=== PATIENT | female | born 1970 | race Caucasian/White ===

== ENCOUNTER → 2021-06-08 12:39 | Outpatient (REF) | payer BC, SELFPAY | LOC: LABSPEC 12:39 | PROVIDERS: PCP Family Medicine; Referring Provider Family Medicine; Visit Provider Family Medicine | DX: Z03.818 Encounter for observation for suspected exposure to other biological agents ruled out (principal) | CPT/HCPCS: 87635; U0005; U0003 ==

== ENCOUNTER 2021-06-21 09:10 | Emergency (ER) | payer BC, SELFPAY ==
[2021-06-21 09:12] VITALS: BP 138/93; PULSE 81; RESP 16; TEMP 36.3; O2SAT 96; BMI 32.2
[2021-06-21 09:13] VITALS: BP 138/93; PULSE 81; RESP 16; TEMP 36.3; O2SAT 96
--- NOTE | 2021-06-21 09:31 | CT_ITS ---
STUDY: CT ABDOMEN AND PELVIS WITHOUT CONTRAST REASON FOR EXAM: Female, 51 years old. Kidney Stone RADIATION DOSAGE (If Supplied By Facility): CTDIvol = ( 11.35 ) mGy, DLP = ( 535.97 ) mGycm TECHNIQUE: Transaxial images were obtained from the dome of the diaphragm to the symphysis pubis without oral contrast, and without intravenous contrast. Sagittal and coronal images were reconstructed. Individualized dose optimization techniques were used for this CT. COMPARISON: None. FINDINGS: The visualized lung bases are unremarkable. The visualized portions of the heart are within normal limits. Normal liver. Normal gallbladder and extrahepatic biliary system. Normal spleen. There is diffuse atrophy of the pancreas. Normal bilateral adrenal glands. 2 mm nonobstructive progress in the lower pole calyx of the right kidney. Mild degree of left hydronephrosis with left perinephric stranding. Mild degree of left hydroureter down to the ureterovesical junction. A 2.5 mm calculus is seen at the base of the bladder on the left side suggestive of recently passed left ureteral calculus. 2 mm calculus in the midpole calyx of the left kidney. Normal visualized stomach. Normal small intestine. There are scattered colonic diverticula consistent with diverticulosis. The appendix is visualized and appears normal. Normal abdominal aorta. Normal inferior vena cava. Normal retroperitoneum. Normal urinary bladder. There is a left-sided inguinal hernia containing adipose tissue. There are mild degenerative changes of the visualized lumbar spine. CT/Abdomen/Pelvis without Cont IMPRESSION: Mild degree of the left hydronephrosis and left hydroureter due to a 2.5 mm calculus which is at the base of the bladder on the left side suggestive of recently passed ureteral stone. Nonobstructive bilateral intrarenal calculi. Electronically Signed: Alan Navas MD at 10:37 EST , Service support ,
--- NOTE | 2021-06-21 09:44 | EDS_ITS ---
HPI History of Present Illness Chief Complaint: Flank Pain Informant: patient Onset/Context/Timing Onset: Days Context: Gradual Onset Timing: Waxes and wanes Current Severity: Moderate Maximum Severity: Moderate Narrative Narrative: Patient presents with left flank pain. She states she initially had pain 2 days ago but it resolved yesterday. This morning on her way to work pain in it again was more severe. She has had some urgency and burning with urination. She has had 1 prior kidney stone and states this feels similar. She did take ibuprofen and Pyridium this morning. [facility] Medical History Asthma Kidney stone Home Medications albuterol sulfate [Ventolin Hfa (SP)] 1 - 2 puff INHALATION Q4H PRN PRN 08/06/15 [History Last Taken Unknown] budesonide-formoterol [Symbicort 160/4.5 Mcg Inhaler (SP)] 2 puff INHALATION BID 08/06/15 [History Last Taken Unknown] escitalopram oxalate 10 mg PO DAILY 08/06/15 [History Last Taken Unknown] ketorolac 10 mg PO Q6H PRN 3 Days #10 tab 06/21/21 [Rx Last Taken Unknown] nitrofurantoin monohyd/m-cryst [Macrobid] 100 mg PO BID #10 cap 06/21/21 [Rx Last Taken Unknown] Allergy/AdvReac Type Severity Reaction Status Date / Time Sulfa (Sulfonamide Allergy Hives Verified 06/21/21 09:13 Antibiotics) aspirin AdvReac Other Verified 06/21/21 09:13 Social History Smoking Status: Never smoker ROS ROS ED Constitutional Constitutional ED: Denies chills or fever(s) Eyes Eyes: Denies change in vision ENT ENT ED: Denies sore throat Cardiovascular Cardiovascular: Denies chest pain Respiratory/Chest Respiratory/Chest: Denies cough or dyspnea Gastrointestinal Gastrointestinal: Reports abdominal pain and nausea; Denies diarrhea or vomiting Genitourinary Genitourinary ED: Reports dysuria Musculoskeletal Musculoskeletal: Reports back pain Integumentary Denies rash Neurologic Neurologic: Denies headache(s) or weakness Psychiatric Psychiatric: Denies anxiety or depression Allergic/Immunologic Allergic/Immunologic ED: Denies urticaria EXAM Physical Exam Const Vital Signs: 06/21/21 09:12 06/21/21 09:13 Temperature 97.3 F L 97.3 F L Temperature Source Temporal Temporal Pulse Rate 81 81 Respiratory Rate 16 16 Blood Pressure 138/93 H 138/93 H Blood Pressure Mean 108 108 Pulse Ox 96 96 Oxygen Delivery Method Room Air Room Air Positive well nourished and well developed General Appearance ED: well developed HEENT Reports normocephalic and head/scalp atraumatic Eyes PERRL and EOMs intact bilaterally Neck supple Chest Wall inspection of chest normal and palpation of chest normal Resp normal respiratory effort and clear to auscultation bilaterally Cardio regular rate and regular rhythm GI Auscultation: hypoactive bowel sounds Palpation: soft and tender other (Mild lower abdominal tenderness to palpation.) Back/Spine no CVA tenderness Extremity normal to inspection Neuro oriented x3 and no sensory deficits noted Sensorium / Orientation: alert Motor Exam: strength 5/5 throughout Psych mental status grossly normal Skin no rashes or lesions noted MDM MDM MDM Narrative Medical decision making narrative: Patient was given morphine, Toradol, Zofran, IV fluids. Lab work, urinalysis, CT flank obtained. Lab Data Attestation: I reviewed the patient's lab results. Labs: Laboratory Results - last 24 hr 06/21/21 06/21/21 06/21/21 09:55 09:55 09:55 WBC 8.2 RBC 4.21 Hgb 13.2 Hct 39.1 MCV 92.9 MCH 31.4 MCHC 33.8 RDW Std Deviation 41.6 RDW Coeff of [place] 12.0 Plt Count 247 MPV 9.7 Immature Gran % (Auto) 0.200 Neut % (Auto) 75.0 H Lymph % (Auto) 16.2 L [place] % (Auto) 6.7 Eos % (Auto) 1.5 Baso % (Auto) 0.4 Absolute Neuts (auto) 6.2 Absolute Lymphs (auto) 1.33 Nucleated RBC % 0 Sodium 142 Potassium 4.2 Chloride 107 Carbon Dioxide 29.0 Anion Gap 6 BUN 17 Creatinine 1.03 H Estim Creat Clear Calc 51.11 Est GFR (MDRD) Af Amer 73 Est GFR (MDRD) Non-Af 60 BUN/Creatinine Ratio 16.5 Glucose 97 Calcium 9.2 Urine Color Red Urine Clarity Sl. Cloudy Urine pH 5.0 Ur Specific [place] 1.025 Urine Protein 30 H Urine Glucose (UA) Normal Urine Ketones Negative Urine Occult Blood 50 H Urine Nitrite Positive H Urine Bilirubin 3 H Urine Urobilinogen 4 H Ur Leukocyte Esterase Negative Urine RBC 50-100 SEEN Urine WBC 0-5 SEEN Ur Squamous Epith Cells 5-10 SEEN Calcium Oxalate Crystal RARE Urine Bacteria RARE Urine Mucus 0 SEEN Radiography Diagnostic Testing: Clinical Impression(s) from Imaging Studies Abdomen/Pelvis CT 06/21/21 09:31 IMPRESSION: Mild degree of the left hydronephrosis and left hydroureter due to a 2.5 mm calculus which is at the base of the bladder on the left side suggestive of recently passed ureteral stone. Nonobstructive bilateral intrarenal calculi. Electronically Signed: Alan Navas MD at 10:37 EST , Service support , Treatment and Re-Evaluation Comments:: Lab work unremarkable with normal renal function. Urinalysis does reveal positive nitrites with 0-5 white cells and rare bacteria. Urine culture will be sent and she will be treated with [address] scan confirms 2.5 mm stone in the base of the bladder suggestive of a recently passed ureteral stone. Test results discussed with patient and family at bedside. She will be treated with Toradol and Bactrim at home. Return instructions provided. Discharge Plan Triage Chief Complaint: Flank Pain ED Provider: Lashell Castañeda Dx/Rx/DC Orders Clinical Impression: Kidney stone Instructions: ED Kidney Stone w/ Colic Prescriptions: New nitrofurantoin monohyd/m-cryst [Macrobid] 100 mg capsule 100 mg PO BID Qty: 10 RF: 0 ketorolac 10 mg tablet 10 mg PO Q6H PRN (Reason: pain) 3 Days Qty: 10 RF: 0 No Action albuterol sulfate [Ventolin HFA] 1 INHALER inhaler 1 - 2 puff inhalation Q4H PRN PRN (Reason: Wheezing) RF: 0 escitalopram oxalate 10 MG tablet 10 mg PO DAILY RF: 0 budesonide-formoterol [Symbicort] 1 INHALER inhaler 2 puff inhalation BID RF: 0 Primary Care Provider: Yony Moyer Referrals: Yony Moyer MD [Primary Care Provider] - Jl Dodd MD [STAFF PHYSICIAN] - As Needed Disposition Disposition: Home, Self Care
[2021-06-21 10:05] LABS: Mucous, Urine 0 SEEN /hpf (<or=2+)
[2021-06-21] MEDS: 0.9% Normal Saline 1,000 ML 250 ML IV (10:06)
[2021-06-21] MEDS: Ketorolac 15 MG/ML Vial IV (10:06)
[2021-06-21] MEDS: Morphine 4 MG/ML Syringe IV (10:06)
[2021-06-21] MEDS: Ondansetron 4 MG/2 ML Vial IV (10:06)
[2021-06-21 10:07] LABS: Color, Urine Red (Yellow); Glucose, Dipstick Normal (Normal); Ketone-Dipstick Negative (Negative); Leukocyte Esterase-Dipstick Negative /ul (Negative); Nitrite-Dipstick Positive (Negative); Occult Blood-Urine 50 /ul (Negative); Protein-Dipstick 30 mg/dl (Negative); Specific Gravity, Urine 1.025 (1.002-1.030); Urine Clarity Sl. Cloudy (Clear); Urine Urobilinogen 4 mg/dl (Normal)
[2021-06-21 10:09] LABS: Absolute Lymphocyte Count 1.33 X10^3/uL (0.83-4.51); Absolute Neutrophil Count 6.2 X10^3/uL (2.0-7.7); Basophil# 0.03 X10^3/uL; Basophil% 0.4 % (0-1); Eosinophil# 0.12 X10^3/uL; Eosinophils% 1.5 % (0-5); Hematocrit 39.1 % (37-47); Hemoglobin 13.2 g/dL (12.0-15.0); Lymphocyte # 1.33 X10^3/ul (0.83-4.51); Lymphocyte % 16.2 % (19-41); Mean Corp Hgb Conc 33.8 g/dL (32-36); Mean Corpuscular Hgb 31.4 pg (27.0-32.0); Mean Corpuscular Volume 92.9 fL (81-99); Mean Platelet Vol. 9.7 fl (6.2-12.0); Monocyte# 0.55 X10^3/uL; Monocyte% 6.7 % (0-10); NRBC Flagged by Analyzer 0 % (0-5); Neutrophil # 6.16 X10^3/uL (2.7-7.7); Platelet Count 247 K/mm3 (150-450); RBC Distribution Width SD 41.6 fl (35.1-43.9); Red Blood Count 4.21 M/mm3 (4.2-5.4); White Blood Count 8.2 K/mm3 (4.4-11.0)
[2021-06-21 10:16] LABS: Anion Gap 6 (5-15); BUN 17 mg/dL (7-18); BUN/Creat Ratio 16.5 RATIO (10-20); Calcium,Total 9.2 mg/dL (8.5-10.1); Chloride 107 mmol/L (98-107); Creatinine, Serum 1.03 mg/dL (0.55-1.02); EST Glomerular Filtration Rate 60 mL/min (>60); Est Glom Filt Rate - Afr Amer 73 mL/min (>60); Estimated Creatinine Clearance 51.11 ml/min; Glucose 97 mg/dL (74-106); Potassium 4.2 mmol/L (3.5-5.1); Sodium Level 142 mmol/L (136-145)
[2021-06-21 10:20] LABS: Urine Bilirubin Dipstick 3 mg/dL (Negative)
[2021-06-21 10:22] LABS: Bacteria RARE /hpf (None Seen); Calcium Oxalate Crystals Ur RARE /hpf (<or=2+); Red Blood Cells-Urine 50-100 SEEN /hpf (0-5); Squamous Epithelial Cells - UA 5-10 SEEN /hpf (5-10); White Blood Cells 0-5 SEEN /hpf (0-5)
== END 2021-06-21 11:40 | disposition home or self-care (01) ==
PROVIDERS: Emergency Provider Emergency Medicine; PCP Family Medicine
DX: N20.0 Calculus of kidney (principal); Z87.442 Personal history of urinary calculi
CPT/HCPCS: 74176; 80048; 81001; 85025; 87086; 87088; 96374; 96375; 99283; J7030; A4216; J2405

== ENCOUNTER 2021-08-24 09:25 | Outpatient (CLI) | payer BC, SELFPAY ==
[2021-08-24 10:56] LABS: Cholesterol 162 mg/dL (200); Glucose 86 mg/dL (74-106); High Density Lipoprotein 56 mg/dL; Triglycerides 82 mg/dL; Very Low Density Lipoprotein 16 mg/dL (5-40)
== END 2021-08-24 23:59 | disposition home or self-care (01) ==
LOC: MTLAB 09:26
PROVIDERS: PCP Family Medicine; Referring Provider Family Medicine; Visit Provider Family Medicine
DX: Z00.00 Encounter for general adult medical examination without abnormal findings (principal)
CPT/HCPCS: 36415; 80061; 82947

== ENCOUNTER → 2024-06-25 | Outpatient (CLI) | payer BC, SELFPAY ==
--- NOTE | 2024-06-25 15:01 | RAD_ITS ---
INDICATION: ARTHRITIS EXAMINATION/TECHNIQUE: X-RAY - LEFT XR Knee Complete 4 Views or More 4 VIEWS COMPARISON: No relevant prior comparison study available FINDINGS: BONES: No fracture demonstrated. Mild joint space narrowing with subchondral sclerosis and osteophytes at all 3 compartments. Most pronounced at the patellofemoral and medial compartment . JOINTS: No dislocation. SOFT TISSUES: Unremarkable. RAD/Knee 4 or More Views IMPRESSION: Mild degenerative changes. No evidence of fracture. Electronically Signed: Keyonna Pelletier MD at 8:08 EST ,
--- NOTE | 2024-06-25 15:01 | RAD_ITS ---
INDICATION: ARTHRITIS EXAMINATION/TECHNIQUE: X-RAY - RIGHT XR Knee Complete 4 Views or More 4 VIEWS COMPARISON: No relevant prior comparison study available FINDINGS: BONES: No fracture demonstrated. Moderate joint space narrowing with subchondral sclerosis and osteophytes at all 3 compartments, most pronounced at the medial compartment. Spurring of the tibial spines. JOINTS: No dislocation. SOFT TISSUES: Unremarkable. RAD/Knee 4 or More Views IMPRESSION: Moderate tricompartmental degenerative changes. No evidence of fracture. Electronically Signed: Keyonna Pelletier MD at 8:07 EST ,
== END | disposition home or self-care (01) ==
LOC: MTRAD 14:59
PROVIDERS: PCP Nurse Practitioner Family; Referring Provider Nurse Practitioner Family; Visit Provider Nurse Practitioner Family
DX: M25.561 Pain in right knee (principal); M25.562 Pain in left knee
CPT/HCPCS: 73564

== ENCOUNTER → 2024-07-13 | Outpatient (CLI) | payer BC, SELFPAY ==
[2024-07-17 13:07] LABS: Age Gdln ACOG Testing 30-65 (.); HPV APTIMA, High Risk Negative (Negative)
[2024-07-19 08:10] LABS: HPV Reflexed? YES, CHARGE PATIENT
== END | disposition home or self-care (01) ==
LOC: LABSPEC 16:01
PROVIDERS: PCP Nurse Practitioner Family; Visit Provider Nurse Practitioner Family
DX: Z12.4 Encounter for screening for malignant neoplasm of cervix (principal)
CPT/HCPCS: 87624; 88175; G0145

== ENCOUNTER → 2024-08-19 | Outpatient (CLI) | payer BC, SELFPAY ==
[2024-08-19 17:53] LABS: Absolute Lymphocyte Count 2.38 X10^3/uL (0.83-4.51); Absolute Neutrophil Count 3.9 X10^3/uL (2.0-7.7); Basophil# 0.03 X10^3/uL; Basophil% 0.4 % (0-1); Eosinophil# 0.09 X10^3/uL; Eosinophils% 1.3 % (0-5); Hematocrit 42.5 % (37-47); Hemoglobin 14.3 g/dL (12.0-15.0); Lymphocyte # 2.38 X10^3/ul (0.83-4.51); Lymphocyte % 35.1 % (19-41); Mean Corp Hgb Conc 33.6 g/dL (32-36); Mean Corpuscular Hgb 32.1 pg (27.0-32.0); Mean Corpuscular Volume 95.3 fL (81-99); Mean Platelet Vol. 9.6 fl (6.2-12.0); Monocyte# 0.34 X10^3/uL; NRBC Flagged by Analyzer 0 % (0-5); Neutrophil # 3.92 X10^3/uL (2.7-7.7); Neutrophil % 57.9 % (47-70); Platelet Count 331 K/mm3 (150-450); RBC Distribution Width CV 12.4 % (11.6-14.6); RBC Distribution Width SD 43.6 fl (35.1-43.9); Red Blood Count 4.46 M/mm3 (4.2-5.4); White Blood Count 6.8 K/mm3 (4.4-11.0)
[2024-08-19 18:07] LABS: AST(SGOT) 19 U/L (15-37); Alanine Aminotransfer ALT/SGPT 47 U/L (13-56); Albumin, Serum 3.6 g/dL (3.2-5.0); Alkaline Phosphatase 80 U/L (45-117); Anion Gap 4 (5-15); BUN 17 mg/dL (7-18); BUN/Creat Ratio 16.5 RATIO (10-20); Calcium,Total 9.3 mg/dL (8.5-10.1); Chloride 105 mmol/L (98-107); Creatinine, Serum 1.03 mg/dL (0.55-1.02); EST Glomerular Filtration Rate 59 mL/min (>60); Est Glom Filt Rate - Afr Amer 72 mL/min (>60); Globulin 3.7 g/dL (2.2-4.2); Glucose 135 mg/dL (74-106); Protein, Total 7.3 g/dL (6.4-8.2); Sodium Level 138 mmol/L (136-145)
== END | disposition home or self-care (01) ==
PROVIDERS: PCP Nurse Practitioner Family; Referring Provider Nurse Practitioner Family; Visit Provider Nurse Practitioner Family
DX: Z00.01 Encounter for general adult medical examination with abnormal findings (principal)
CPT/HCPCS: 36415; 80053; 85025

== ENCOUNTER → 2025-02-14 | Outpatient (CLI) | payer BC, SELFPAY ==
--- NOTE | 2025-02-14 06:55 | EKG12_ITS ---
Test Reason : PREOP Blood Pressure : */* mmHG Vent. Rate : 82 BPM Atrial Rate : 82 BPM P-R Int : 146 ms QRS Dur : 90 ms QT Int : 388 ms P-R-T Axes : 53 33 49 degrees QTcB Int : 453 ms Normal sinus rhythm Normal ECG Confirmed by VIANCA VENEGAS, KEESHA ([id number]), associate entertainment editor DAHLIA CHAVEZ ([id number]) on 02/15/2025 6:04:31 AM Referred By: Kal Thomas Confirmed By: KEESHA COLEY MD
--- NOTE | 2025-02-14 06:58 | CT_ITS ---
PROCEDURE: EXTREMITY LOWER WITHOUT CONTRA 02/14/2025 REASON FOR EXAM: PAIN IN RT KNEE TECHNIQUE: EXTREMITY LOWER WITHOUT CONTRA Coronal and Sagittal reconstruction series were provided. CONTRAST: None One or more dose reduction techniques were used (e.g., Automated exposure control, adjustment of the mA and/or kV according to patient size, use of iterative reconstruction technique). RADIATION DOSE SUMMARY: DLP: 1179 mGycm COMPARISON: None FINDINGS: There is severe medial joint space narrowing. There is osteophyte formation at all articular surfaces. There is no acute fracture or dislocation. There is a small joint effusion. There is no visible soft tissue mass or cyst. There is no visible atherosclerosis. CT/Extremity Lower without Contra IMPRESSION: There is severe medial joint space narrowing. There is osteophyte formation at all articular surfaces. Reading Location: [facility]
--- OUTSIDE RECORDS SUMMARY | 2025-02-14 07:08 | XMS RPT_ITS | CCD ---
Author Organization [facility] Inform ion Partnership [employer]MENT SUPERVISOR [facility] Care Team Providers Care [employer] Name Role Phone Unavailable Primary Care Provider Unavailabl e Kal Thomas Referring Unavailable Kal Thomas Attending Unavailable Jesus, Radha Primary Care Unavailable Jesus, Radha Attending Unavailable Jesus, Radha Primary Care Unavailable Jesus, Radha Referring Unavailable Jesus, Radha Attending Unavailable Jesus, Radha Primary Care Unavailable Jesus, Radha Referring Unavailable Jesus, Radha Attending Unavailable Jesus, Radha Primary Care Unavailable Allergies Allergy Classification Reported Allergen(s) Allergy Type Date of Onset Reaction(s) Facility (1 source) Aspirin Drug Allergy 3 Other: See Comments [facility] (1 source) Sulfonamides (Antibiotic) Drug Allergy [address] [facility] (1 source) Aspirin Drug Allergy 1 [facility] (1 source) Sulfonamides (Antibiotic) Drug allergy (disorder) 1 [facility] Medications Current Medications Medication Drug Class(es) Dates Sig (Normalized) Sig (Original) [id number] actuat albuterol 0.09 mg/actuat metered dose inhaler (1 source) beta2-Adrenergic Agonist take 2 puff(s) by inhalation every six hours as needed albuterol HFA (PROVENTIL HFA, VENTOLIN HFA) 90 mcg/actuation inhaler Inhale 2 Puffs as instructed every 6 hours as needed. 0 Active meclizine hydrochloride 25 mg oral tablet (1 source) Antiemetic Start: 12-17-2023 End: 12-24-2023 take 1 tablet by mouth every six hours as needed meclizine (ANTIVERT) 25 mg tab Take 1 tablet by mouth every 6 hours as needed (dizziness) for up to 7 days. 12 tablet 0 12/17/2023 12/24/2023 Active Problems Active Problems Problem Classification Problem Date Documented Da te Episodic/Chronic Conditions associated with dizziness or vertigo (1 source) Vertigo; Translations: [Dizziness and giddiness] 12-17-2023 Episodic Other ear and sense organ disorders (1 source) Bilateral subjective tinnitus of ears; Translations: [Tinnitus, bilateral] 12-17-2023 Episodic Past or Other Problems Problem Classification Problem Date Documented Da te Episodic/Chronic Other non-traumatic joint disorders (1 source) Pain in right knee; Translations: [Pain in right knee] Onset: 07-19-2024 Episodic Other screening for suspected conditions (not mental disorders or infectious disease) (1 source) Encounter for screening for malignant neoplasm of cervix; Translations: [Encounter for screening for malignant neoplasm of cervix] Onset: 08-02-2024 Episodic Results Test Name Value Interpretation Reference Range Facil ity CBC W/Diff, Automatedon 08-01 Absolute Lymph 2.38 X10 3/uL Normal 0.83-4.51 [facility] Comment on above: Performed By: #### L 500.4050, L100.0100 #### [facility] [address] [place], [address] Absolute Neut 3.9 X10 3/uL Normal 2.0-7.7 [facility] Comment on above: Performed By: #### L 500.4050, L100.0100 #### [facility] [address] [place], [address] Basophils/100 WBC (Bld) 0.4 % Normal 0-1 [facility] Comment on above: Performed By: #### L 500.4050, L100.0100 #### [facility] [address] [place], [address] Eosinophils/100 WBC (Bld) 1.3 % Normal 0-5 [facility] Comment on above: Performed By: #### L 500.4050, L100.0100 #### [facility] [address] [place], [address] Erythrocyte distribution width (RBC) [Ratio] 12.4 % Normal 11.6-14.6 [facility] Comment on above: Performed By: #### L 500.4050, L100.0100 #### [facility] [address] [place], [address] Hematocrit (Bld) [Volume fraction] 42.5 % Normal 37-47 [facility] Comment on above: Performed By: #### L 500.4050, L100.0100 #### [facility] [address] [place], [address] Hemoglobin (Bld) [Mass/Vol] 14.3 g/dL Normal 12.0-15.0 [facility] Comment on above: Performed By: #### L 500.4050, L100.0100 #### [facility] [address] [place], [address] IG% 0.300 Normal 0.0-0.9 [facility] Comment on above: Result Comment: IG% - Immature Granulocytes (promyelocytes, myelocytes and metamyelocytes) > 1% indicates that a LEFT SHIFT is Present. Performed By: #### L 500.4050, L100.0100 #### [facility] [address] [place], [address] Lymphocytes/100 WBC (Bld) 35.1 % Normal 19-41 [facility] Comment on above: Performed By: #### L 500.4050, L100.0100 #### [facility] [address] [place], [address] MCH (RBC) [Entitic mass] 32.1 pg High 27.0-32.0 [facility] Comment on above: Performed By: #### L 500.4050, L100.0100 #### [facility] [address] [place], [address] MCHC (RBC) [Mass/Vol] 33.6 g/dL Normal 32-36 [facility] Comment on above: Performed By: #### L 500.4050, L100.0100 #### [facility] [address] [place], [address] MCV (RBC) [Entitic vol] 95.3 fL Normal 81-99 [facility] Comment on above: Performed By: #### L 500.4050, L100.0100 #### [facility] [address] [place], [address] Monocytes/100 WBC (Bld) 5.0 % Normal 0-10 [facility] Comment on above: Performed By: #### L 500.4050, L100.0100 #### [facility] [address] [place], [address] Neutrophils/100 WBC (Bld) 57.9 % Normal 47-70 [facility] Comment on above: Performed By: #### L 500.4050, L100.0100 #### [facility] [address] [place], [address] Nucleated RBC (Bld) [#/Vol] 0 10*3/uL Normal 0-5 [facility] Comment on above: Performed By: #### L 500.4050, L100.0100 #### [facility] [address] [place], [address] Platelet mean volume (Bld) [Entitic vol] 9.6 fL Normal 6.2-12.0 [facility] Comment on above: Performed By: #### L 500.4050, L100.0100 #### [facility] [address] [place], [address] Platelets (Bld) [#/Vol] 331 10*3/uL Normal 150-450 [facility] Comment on above: Performed By: #### L 500.4050, L100.0100 #### [facility] [address] [place], [address] RBC (Bld) [#/Vol] 4.46 10*6/uL Normal 4.2-5.4 [facility] Comment on above: Performed By: #### L 500.4050, L100.0100 #### [facility] [address] [place], [address] RDW SD 43.6 fl Normal 35.1-43.9 [facility] Comment on above: Performed By: #### L 500.4050, L100.0100 #### [facility] [address] [place], [address] WBC (Bld) [#/Vol] 6.8 10*3/uL Normal 4.4-11.0 [facility] Comment on above: Performed By: #### L 500.4050, L100.0100 #### [facility] [address] [place], [address] Comprehensive Metabolic Prof [facility] 08-19-2024 Albumin [Mass/Vol] 3.6 g/dL Normal 3.2-5.0 [facility] Comment on above: Performed By: #### L 500.4050, L100.0100 #### [facility] [address] [place], [address] Albumin/Globulin [Mass ratio] 1.0 {ratio} Normal 0.9-2.4 [facility] Comment on above: Performed By: #### L 500.4050, L100.0100 #### [facility] [address] [place], [address] ALK P 80 U/L Normal 45-117 [facility] Comment on above: Performed By: #### L 500.4050, L100.0100 #### [facility] [address] [place], [address] ALT [Catalytic activity/Vol] 47 U/L Normal 13-56 [facility] Comment on above: Performed By: #### L 500.4050, L100.0100 #### [facility] [address] [place], [address] AST [Catalytic activity/Vol] 19 U/L Normal 15-37 [facility] Comment on above: Performed By: #### L 500.4050, L100.0100 #### [facility] [address] [place], [address] Bilirubin [Mass/Vol] 0.40 mg/dL Normal 0.20-1.00 [facility] Comment on above: Result Comment: For patients on eltrombopag therapy, use of Dimension Verner TBIL is not recommended. Performed By: #### L 500.4050, L100.0100 #### [facility] [address] [place], [address] BUN/CRE 16.5 RATIO Normal 10-20 [facility] Comment on above: Performed By: #### L 500.4050, L100.0100 #### [facility] [address] [place], [address] CA,Total 9.3 mg/dL Normal 8.5-10.1 [facility] Comment on above: Performed By: #### L 500.4050, L100.0100 #### [facility] [address] [place], [address] Chloride [Moles/Vol] 105 mmol/L Normal 98-107 [facility] Comment on above: Performed By: #### L 500.4050, L100.0100 #### [facility] [address] [place], [address] CO2 [Moles/Vol] 29.0 mmol/L Normal 21.0-32.0 [facility] Comment on above: Performed By: #### L 500.4050, L100.0100 #### [facility] [address] [place], [address] Creatinine [Mass/Vol] 1.03 mg/dL High 0.55-1.02 [facility] Comment on above: Result Comment: The validity of the calculated GFR GFRAA in patients over 70 years has not been determined. Clinical correlation is essential. Performed By: #### L 500.4050, L100.0100 #### [facility] [address] [place], [address] EST GFR - AA 72 mL/min Normal >60 [facility] Comment on above: Result Comment: Afri can Cypriot GFR Calc Performed By: #### L 500.4050, L100.0100 #### [facility] [address] [place], [address] GAP 4 Low 5-15 [facility] Comment on above: Performed By: #### L 500.4050, L100.0100 #### [facility] [address] [place], [address] GFR/1.73 sq M.predicted among non-blacks MDRD (S/P/Bld) [Vol rate/Area] 59 mL/min/{1.73_m2} Low >60 [facility] Comment on above: Result Comment: Non- GFR Calc Performed By: #### L 500.4050, L100.0100 #### [facility] [address] [place], [address] Globulin (S) [Mass/Vol] 3.7 g/dL Normal 2.2-4.2 [facility] Comment on above: Performed By: #### L 500.4050, L100.0100 #### [facility] [address] [place], [address] Glucose [Mass/Vol] 135 mg/dL High 74-106 [facility] Comment on above: Result Comment: Fast ing Glucose result greater than or equal to 126 mg/dL suggests DIABETES MELLITUS per A.D.A. criteria. Performed By: #### L 500.4050, L100.0100 #### [facility] [address] [place], [address] Potassium [Moles/Vol] 4.0 mmol/L Normal 3.5-5.1 [facility] Comment on above: Performed By: #### L 500.4050, L100.0100 #### [facility] [address] [place], [address] Sodium [Moles/Vol] 138 mmol/L Normal 136-145 [facility] Comment on above: Performed By: #### L 500.4050, L100.0100 #### [facility] [address] [place], [address] T PROT 7.3 g/dL Normal 6.4-8.2 [facility] Comment on above: Performed By: #### L 500.4050, L100.0100 #### [facility] [address] [place], [address] Urea nitrogen [Mass/Vol] 17 mg/dL Normal 7-18 [facility] Comment on above: Performed By: #### L 500.4050, L100.0100 #### [facility] [address] [place], [address] PAP IG w/Reflex HPV GDLNon 0 - ADEQ Comment Normal . [facility] Comment on above: Order Comment: Speci men Comment: No. of containers..01 ThinPrep Vial Result Comment: Sati sfactory for evaluation. Endocervical and/or squamous metaplastic cells (endocervical component) are present. Performed By: #### L 7400.0290 #### [facility] [address] [place], [address] Age Gdln ACOG T 30-65 Normal . [facility] Comment on above: Order Comment: Speci men Comment: No. of containers..01 ThinPrep Vial Performed By: #### L 7400.0290 #### [facility] [address] [place], [address] COMM . Normal . [facility] Comment on above: Order Comment: Speci men Comment: No. of containers..01 ThinPrep Vial Performed By: #### L 7400.0290 #### [facility] [address] [place], [address] COMMENT Comment Normal . [facility] Comment on above: Order Comment: Speci men Comment: No. of containers..01 ThinPrep Vial Result Comment: This liquid based ThinPrep(R) pap test was screened with the use of an image guided system. Performed By: #### L 7400.0290 #### [facility] [address] [place], [address] DIAG Comment Normal . [facility] Comment on above: Order Comment: Speci men Comment: No. of containers..01 ThinPrep Vial Result Comment: NEGA TIVE FOR INTRAEPITHELIAL LESION OR MALIGNANCY. Performed By: #### L 7400.0290 #### [facility] [address] [place], [address] HPV APTIMA, HR Negative Normal Negative [facility] Comment on above: Order Comment: [facility] Comment: No. of containers..01 ThinPrep Vial Result Comment: This nucleic acid amplification test detects fourteen high- risk HPV types (16,18,31,33,35,39,45,51,52,56,58,59,66,68) without differentiation. Performed By: #### L 7400.0290 #### [facility] [address] [place], [address] HPV Lucie Rfx Comment Normal . [facility] Comment on above: Order Comment: Speci men Comment: No. of containers..01 ThinPrep Vial Result Comment: Crit eria not met, HPV Genotype not performed. Performed at: [facility] [address] [id number] Internship: Marlyn Mari MD, Phone: [phone] Performed at: - [facility] [address] [place] [id number] Internship: Marlyn Mari MD, Phone: [phone] Performed By: #### L 7400.0290 #### [facility] [address] [place], [place], [id number] PAPSMR Comment Normal . [facility] Comment on above: Order Comment: Speci men Comment: No. of containers..01 ThinPrep Vial Result Comment: The Pap smear is a screening test designed to aid in the detection of premalignant and malignant conditions of the uterine cervix. It is not a diagnostic procedure and should not be used as the sole means of detecting cervical cancer. Both false-positive and false-negative reports do occur. Performed By: #### L 7400.0290 #### [facility] [address] [place], [place], [address] PERFORM Comment Normal . [facility] Comment on above: Order Comment: Speci men Comment: No. of containers..01 ThinPrep Vial Result Comment: Hector Tim, Access Lead (ASCP) Performed By: #### L 7400.0290 #### [facility] [address] [place], [place], [id number] Knee 4 or More Viewson 06-[address] [facility] Imaging Services [address] [place], [place] [address] Knee 4 or More Views MR#: [id number] Acct: [id number] Name: BRAYDEN LU Rep #: [id number] : 1970 F 54 From: Keyonna Monsalve PCP: JACKSON Salazar Status: REG CLI Study: Knee 4 or More Views Date of Exam: 06/25/24 Exam# [id number] Ordering Dr: Radha Lee [id number] INDICATION: ARTHRITIS EXAMINATION/TECHNIQUE: X-RAY - LEFT XR Knee Complete 4 Views or More 4 VIEWS COMPARISON: No relevant prior comparison study available FINDINGS: BONES: No fracture demonstrated. Mild joint space narrowing with subchondral sclerosis and osteophytes at all 3 compartments. Most pronounced at the patellofemoral and medial compartment . JOINTS: No dislocation. SOFT TISSUES: Unremarkable. RAD/Knee 4 or More Views IMPRESSION: Mild degenerative changes. No evidence of fracture. Electronically Signed: Keyonna Pelletier MD at 8:08 EST Reading Location ID and State: [address] [place] [address] Tel , Service support , CC: JACKSON Lee Medical Writer: Signed Normal [facility] Knee [address] [facility] Imaging Services [address] [place] [id number] Knee 4 or More Views MR#: [id number] Acct: [id number] Name: BRAYDEN LU Rep #: [id number] : 1970 F 54 From: Keyonna Monsalve PCP: JACKSON Salazar Status: REG CLI Study: Knee 4 or More Views Date of Exam: 06/25/24 Exam# [id number] Ordering Dr: Radha Lee [id number] INDICATION: ARTHRITIS EXAMINATION/TECHNIQUE: X-RAY - RIGHT XR Knee Complete 4 Views or More 4 VIEWS COMPARISON: No relevant prior comparison study available FINDINGS: BONES: No fracture demonstrated. Moderate joint space narrowing with subchondral sclerosis and osteophytes at all 3 compartments, most pronounced at the medial compartment. Spurring of the tibial spines. JOINTS: No dislocation. SOFT TISSUES: Unremarkable. RAD/Knee 4 or More Views IMPRESSION: Moderate tricompartmental degenerative changes. No evidence of fracture. Electronically Signed: Keyonna Pelletier MD at 8:07 EST , CC: JACKSON Lee Medical Writer: Signed [facility] 12-17-2023 [facility] BRAYDEN LU ([id number]) 1970 F Date Time Provider Department 12/17/23 11:45 AM CRESENCIO SERNA [facility] During your visit today, we recorded the following information about you: Temperature Pulse Respiration Blood pressure 97.5 degrees 75/minute 21/minute 124/80 Weight 82.6 kg Cresencio Serna MD 12/17/2023 12:34 PM Signed Patient presents with: Ear Problem: Bilateral ear issues, dizziness, nausea x 1 day HPI: Feeling ear issues and dizziness since yesterday. She initially had a pop in 1 ear and heard noise in the other. Now both ears have popped. She feels woozy like she is moving when standing still (no light-headedness). Symptoms are triggered with head movement. Positive symptoms: dizziness, nausea, tinnitus, chronic nasal congestion Negative symptoms: Cough, Shortness of breath, Chest tightness, Chest pain, Sore throat, Sinus pressure, Rhinorrhea, Fever, Chills, Malaise, Headache, Vomiting, Diarrhea, numbness, weakness, head injury, vision change, OTC: none She has a past history of migraine headaches but have improved over time. Her cholesterol and glucose were normal last year. Denies family history of aneurysm, hearing issues, vertigo. PAST MEDICAL HISTORY Diagnosis Date Asthma PAST SURGICAL HISTORY Procedure Laterality Date SECTION HX LIGATE FALLOPIAN TUBE MEDICATIONS: Current Outpatient Medications Medication Sig albuterol HFA (PROVENTIL HFA, VENTOLIN HFA) 90 mcg/actuation inhaler Inhale 2 Puffs as instructed every 6 hours as needed. No current facility-administered medications for this visit. ALLERGIES: ALLERGIES Allergen Reactions Sulfa (Sulfonamide * Hives Aspirin Other: See Comments Asthma flare VITALS: BP 124/80 Pulse 75 Temp 36.4 ?C (97.5 ?F) Resp 21 Wt 82.6 kg (182 lb 1.6 oz) SpO2 97% PHYSICAL EXAM: GEN: pleasant, no acute distress, well nourished HEENT: PERRL, EOMI, no abnormal nystagmus, MMM, TMs without erythema/bulge/effusio n, canals clear aside from a hair in each mid canal NECK: supple, no lymphadenopathy, no thyromegaly HEART: regular rate, regular rhythm, no murmurs LUNGS: clear to auscultation, no wheezes or crackles, no increased WOB ABD: soft, non-distended, no masses palpated, non-tender EXT: no clubbing, no cyanosis, no edema BACK: Normal curvature, no midine tenderness, no paraspinal tenderness NEURO: Alert and oriented to person, place, and time; DTR 1+/4 and strength 4/4 in upper and lower extremities, CN II-XII intact, gait normal, PSYCH: normal mood, full range of affect, speech rate and content appropriate ASSESSMENT/PLAN: 1. Vertigo - ICD9: 780.4, ICD10: R42 (primary diagnosis) 2. Tinnitus aurium, bilateral - ICD9: 388.31, ICD10: H93.13 Benign neurological exam. No additional symptoms beyond vertigo and tinnitus. Meclizine as needed for dizziness. Seek emergency room evaluation for worsening headache, worsening dizziness, worsening nausea, vision change, numbness, weakness, or speech difficulty. She has no PCP. Provided number for [facility]. Seek re-evaluation this week. Cresencio Serna MD Allergies As of Date: 12/17/2023 Noted Allergy Reaction SULFA (SULFONAMIDE ANTIBIOTICS) 08/05/2022 4 - Hives ASPIRIN 08/05/2022 14 - Other: See Comments Comments: Asthma flare Date Reviewed: 12/17/2023 Reviewed by: Kimberly Aquino MA - Fully Assessed Reason for Visit: Ear Problem [38] Cmt: Bilateral ear issues, dizziness, nausea x 1 day Primary Visit Diagnosis:Vertigo [R42] Other Visit Diagnosis:Tinnitus aurium, bilateral [H93.13] Order(s):meclizine (ANTIVERT) 25 mg tabTake 1 tablet by mouth every 6 hours as needed (dizziness) for up to 7 days.Disp: 12 tabletRfl: 0 Prescriptions as of 12/17/2023 - albuterol HFA (PROVENTIL HFA, VENTOLIN HFA) 90 mcg/actuation inhaler Inhale 2 Puffs as instructed every 6 hours as needed. - meclizine (ANTIVERT) 25 mg tab Take 1 tablet by mouth every 6 hours as needed (dizziness) for up to 7 days. Problem List As Of Date: 12/17/2023 (None) Prescriptions ordered this encounter Disp Refills Start End MECLIZINE 25 MG TABLET 12 t* 0 12/17/2023 12/24/2023 Route: ORAL Sig: Take 1 tablet by mouth every 6 hours as needed (dizziness) for up to 7 days. Encounter Status:Closed by CRESENCIO SERNA on 12/17/23 Normal [facility] Vital Signs Date Time Vital Sign Value Performing Clinician Victoriano torres 12-17-2023 11:59-0400 Body temperature 97.5 [degF] Cresencio Serna MD Work Phone: [facility] 12-17-2023 11:59-0400 Body weight 82.6 kg Cresencio Serna MD Work Phone: [facility] 12-17-2023 11:59-0400 Diastolic blood pressure 80 mm[Hg] Cresencio Serna MD Work Phone: [facility] 12-17-2023 11:59-0400 Heart rate 75 /min Cresencio Serna MD Work Phone: [facility] 12-17-2023 11:59-0400 Respiratory rate 21 /min Cresencio Serna MD Work Phone: [facility] 12-17-2023 11:59-0400 SaO2% (BldA) [Mass fraction] 97 % Cresencio Serna MD Work Phone: [facility] 12-17-2023 11:59-0400 Systolic blood pressure 124 mm[Hg] Cresencio Serna MD Work Phone: [facility] Encounters Encounter Date Encounter Type Care Provider Facility Start: 02-14-2025 ambulatory [facility] Facility: [facility] Start: 02-11-2025 Encounter for other preprocedural examination [facility] Start: 09-02-2024 Encounter for genera l adult medical examination with abnormal findings [facility] Start: 08-19-2024 End: 08-19-2024 ambulatory [facility] Facility:[facility] Start: 07-13-2024 End: 07-13-2024 ambulatory [facility] Facility:[facility] Start: 06-25-2024 End: 06-25-2024 ambulatory [facility] Facility:[facility] Start: 12-17-2023 End: 12-17-2023 ambulatory Facility:[facility] Start: 12-17-2023 End: 12-17-2023 Patient encounter procedure Cresencio Serna MD Work Phone: [facility] Comment on above: Vertigo (Primary Dx) ; Tinnitus aurium, bilateral Procedures Date Procedure Procedure Detail Performing Clinician Start: 09-26-2023 Lipid 1996 panel - S sam or Plasma Cresencio Serna MD Work Phone: Plan of Treatment Date Care Activity Detail Author Start: 09-25-2033 Urine microalbumin profile DTa P,Tdap,Td Vaccine (2 - Td or Tdap) [facility] Start: 09-25-2028 Lipid panel Lipid Screening [facility] Start: 02-29-2024 Influenza vaccination Influenz a Vaccine (Season Ended) [facility] Start: 06-30-2023 Behavioral Health Screening [facility] [facility] Start: 02-28-2023 Covid-19 Vaccine ( season) Covid-19 Vaccine ( season) [facility] Start: 02-21-2020 Shingrix Vaccine (1 of 2) Scott grix Vaccine (1 of 2) [facility] Start: 2015 Diabetes Screening Diabetes Screenin g [facility] Start: 2015 Screening for malign ant neoplasm of colon [facility] Start: 2010 Screening for malign ant neoplasm of breast Mammogram Screening [facility] Start: 1991 Screening for malign ant neoplasm of cervix Cervical Cancer Screening [facility] Start: 1989 Hepatitis B Vaccine (1 of 3 - 19+ 3-dose series) Hepatitis B Vaccine (1 of 3 - 19+ 3-dose series) [facility] Start: 02-21-1988 Hepatitis C screening Hepatitis C Sc reening [facility] Start: 02-21-1988 HIV screening [facility] Payers Date Payer Category Payer Self-pay 2024 Unknown [id number] 2022 Private Health Insurance [employer] A ETNA POS [id number] 2022-Present [phone] [address] [place] [address] POS [id number] 2022 Private Health Insurance [id number] Unknown [id number] Unknown [id number] Unknown [id number] Unknown [id number] Social History Date Type Detail Facility Start: 12-17-2023 Tobacco smoking status NHIS Never smoked tobacco [facility] Start: 12-17-2023 Tobacco use and exposure Smokeless tobacco non-user [facility] Start: 12-17-2023 History of Social function [facility] Start: 12-17-2023 Tobacco use panel [facility] Start: 1970 Sex Assigned At Not on file [facility] NEGATED: Highlighted rowStart: NINF History of tobacco use Passive smoker [facility] Progress note 12-17-2023 Note Date & Type Note Facility 12-17-2023 Note HNO ID: [id number] Author: CRESENCIO SERNA MD Service: ? Author Type: Physician Type: Progress Notes Filed: 12/17/2023 12:34 Note Text: Patient presents with: Ear Problem: Bilateral ear issues, dizziness, nausea x 1 day HPI: Feeling ear issues and dizziness since yesterday. She initially had a pop in 1 ear and heard noise in the other. Now both ears have popped. She feels woozy like she is moving when standing still (no light-headedness). Symptoms are triggered with head movement. Positive symptoms: dizziness, nausea, tinnitus, chronic nasal congestion Negative symptoms: Cough, Shortness of breath, Chest tightness, Chest pain, Sore throat, Sinus pressure, Rhinorrhea, Fever, Chills, Malaise, Headache, Vomiting, Diarrhea, numbness, weakness, head injury, vision change, OTC: none She has a past history of migraine headaches but have improved over time. Her cholesterol and glucose were normal last year. Denies family history of aneurysm, hearing issues, vertigo. PAST MEDICAL HISTORY Diagnosis Date Asthma PAST SURGICAL HISTORY Procedure Laterality Date SECTION HX LIGATE FALLOPIAN TUBE MEDICATIONS: Current Outpatient Medications Medication Sig albuterol HFA (PROVENTIL HFA, VENTOLIN HFA) 90 mcg/actuation inhaler Inhale 2 Puffs as instructed every 6 hours as needed. No current facility-administered medications for this visit. ALLERGIES: ALLERGIES Allergen Reactions Sulfa (Sulfonamide * Hives Aspirin Other: See Comments Asthma flare VITALS: BP 124/80 Pulse 75 Temp 36.4 ?C (97.5 ?F) Resp 21 Wt 82.6 kg (182 lb 1.6 oz) SpO2 97% PHYSICAL EXAM: GEN: pleasant, no acute distress, well nourished HEENT: PERRL, EOMI, no abnormal nystagmus, MMM, TMs without erythema/bulge/effusion, canals clear aside from a hair in each mid canal NECK: supple, no lymphadenopathy, no thyromegaly HEART: regular rate, regular rhythm, no murmurs LUNGS: clear to auscultation, no wheezes or crackles, no increased WOB ABD: soft, non-distended, no masses palpated, non-tender EXT: no clubbing, no cyanosis, no edema BACK: Normal curvature, no midine tenderness, no paraspinal tenderness NEURO: Alert and oriented to person, place, and time; DTR 1+/4 and strength 4/4 in upper and lower extremities, CN II-XII intact, gait normal, PSYCH: normal mood, full range of affect, speech rate and content appropriate ASSESSMENT/PLAN: 1. Vertigo - ICD9: 780.4, ICD10: R42 (primary diagnosis) 2. Tinnitus aurium, bilateral - ICD9: 388.31, ICD10: H93.13 Benign neurological exam. No additional symptoms beyond vertigo and tinnitus. Meclizine as needed for dizziness. Seek emergency room evaluation for worsening headache, worsening dizziness, worsening nausea, vision change, numbness, weakness, or speech difficulty. She has no PCP. Provided number for [facility]. Seek re-evaluation this week. Cresencio Serna MD [facility] History of Present illness Narrative 12-17-2023 Cresencio Serna MD - 12/17/2023 12:01 PM EDT Note Date & Type Note Facility 12-17-2023 History of Presen t illness Narrative Patient presents with: Ear Problem: Bilateral ear issues, dizziness, nausea x 1 day HPI: Feeling ear issues and dizziness since yesterday. She initially had a pop in 1 ear and heard noise in the other. Now both ears have popped. She feels woozy like she is moving when standing still (no light-headedness). Symptoms are triggered with head movement. Positive symptoms: dizziness, nausea, tinnitus, chronic nasal congestion Negative symptoms: Cough, Shortness of breath, Chest tightness, Chest pain, Sore throat, Sinus pressure, Rhinorrhea, Fever, Chills, Malaise, Headache, Vomiting, Diarrhea, numbness, weakness, head injury, vision change, OTC: none She has a past history of migraine headaches but have improved over time. Her cholesterol and glucose were normal last year. Denies family history of aneurysm, hearing issues, vertigo. PAST MEDICAL HISTORY Diagnosis Date Asthma PAST SURGICAL HISTORY Procedure Laterality Date SECTION HX LIGATE FALLOPIAN TUBE MEDICATIONS: Current Outpatient Medications Medication Sig albuterol HFA (PROVENTIL HFA, VENTOLIN HFA) 90 mcg/actuation inhaler Inhale 2 Puffs as instructed every 6 hours as needed. No current facility-administered medications for this visit. ALLERGIES: ALLERGIES Allergen Reactions Sulfa (Sulfonamide * Hives Aspirin Other: See Comments Asthma flare VITALS: BP 124/80 Pulse 75 Temp 36.4 C (97.5 F) Resp 21 Wt 82.6 kg (182 lb 1.6 oz) SpO2 97% PHYSICAL EXAM: GEN: pleasant, no acute distress, well nourished HEENT: PERRL, EOMI, no abnormal nystagmus, MMM, TMs without erythema/bulge/effusion, canals clear aside from a hair in each mid canal NECK: supple, no lymphadenopathy, no thyromegaly HEART: regular rate, regular rhythm, no murmurs LUNGS: clear to auscultation, no wheezes or crackles, no increased WOB ABD: soft, non-distended, no masses palpated, non-tender EXT: no clubbing, no cyanosis, no edema BACK: Normal curvature, no midine tenderness, no paraspinal tenderness NEURO: Alert and oriented to person, place, and time; DTR 1+/4 and strength 4/4 in upper and lower extremities, CN II-XII intact, gait normal, PSYCH: normal mood, full range of affect, speech rate and content appropriate ASSESSMENT/PLAN: 1. Vertigo - ICD9: 780.4, ICD10: R42 (primary diagnosis) 2. Tinnitus aurium, bilateral - ICD9: 388.31, ICD10: H93.13 Benign neurological exam. No additional symptoms beyond vertigo and tinnitus. Meclizine as needed for dizziness. Seek emergency room evaluation for worsening headache, worsening dizziness, worsening nausea, vision change, numbness, weakness, or speech difficulty. She has no PCP. Provided number for [facility]. Seek re-evaluation this week. Cresencio Serna MD documented in this encounter [facility] Evaluation note Note Date & Type Note Facility Evaluation note Diagnosis Vertigo- Primary Dizziness and giddiness Tinnitus aurium, bilateral documented in this encounter [facility] Summary Purpose Family History No Family History Records FoundNo Family History Records Found Advance Directives No Advanced Directives Records FoundNo Advanced Directives Records Found Additional Source Comments Source Comments (unrecognize d section and content) In the event this informatio n is protected by the Federal Confidentiality of Alcohol and Drug Abuse Patient Records regulations: The Federal rules restrict any use of the information to criminally investigate or prosecute any alcohol or drug abuse patient.[facility] Reason for Visit (unrecogniz ed section and content) Reason Comments Ear Problem Bilateral ear issues , dizziness, nausea x 1 day INFORMATION SOURCE (unrecogn ized section and content) DATE CREATED AUTHOR 12/19/2023 [facility] DATE CREATED AUTHOR AUTHOR'S ORGANIZ ATION 02/13/2025 [facility] FOR RECORDS PERTAINING TO PATIENTS WHO ARE OR HAVE BEEN ENROLLED IN A CHEMICAL DEPENDENCY/SUBSTANCEABUSE PROGRAM, SOME INFORMATION MAY BE OMITTED. This clinical summary was aggregated from multiple sources. Caution should be exercised in using it in the provision of clinical care. This summary normalizes information from multiple sources, and as a consequence, information in this document may materially change the coding, format and clinical context of patient data. In addition, data may be omitted in some cases. CLINICAL DECISIONS SHOULD BE BASED ON THE PRIMARY CLINICAL RECORDS. [facility] [employer] [facility]. provides no warranty or guarantee of the accuracy or completeness of information in this document.
== END | disposition home or self-care (01) ==
PROVIDERS: PCP Nurse Practitioner Family; Referring Provider Specialist; Visit Provider Specialist
DX: Z01.810 Encounter for preprocedural cardiovascular examination (principal); M17.11 Unilateral primary osteoarthritis, right knee; M21.161 Varus deformity, not elsewhere classified, right knee
CPT/HCPCS: 73700; 93005

== ENCOUNTER → 2025-02-17 | Outpatient (CLI) | payer BC, SELFPAY ==
--- OUTSIDE RECORDS SUMMARY | 2025-02-17 07:18 | XMS RPT_ITS | CCD ---
Author Organization [facility] Inform ion Partnership DATA MANAGEMENT [facility] Care Team Providers Care Assistant Associate Professor Name Role Phone Unavailable Primary Care Provider Unavailabl e Jesus, Radha Primary Care Unavailable WilliamKal villarreal Attending Unavailable William, Akl Referring Unavailable Jesus, Radha Attending Unavailable Jesus, Radha Referring Unavailable Jesus, Radha Primary Care Unavailable Jesus, Radha Attending Unavailable Jesus, Radha Primary Care Unavailable Jesus, Radha Referring Unavailable Jesus, Radha Primary Care Unavailable Jesus, Radha Attending Unavailable Allergies Allergy Classification Reported Allergen(s) Allergy Type Date of Onset Reaction(s) Facility (1 source) Aspirin Drug Allergy 3 Other: See Comments [facility] (1 source) Sulfonamides (Antibiotic) Drug Allergy [address] [facility] (1 source) Aspirin Drug Allergy 1 [facility] (1 source) Sulfonamides (Antibiotic) Drug allergy (disorder) 1 [facility] Medications Current Medications Medication Drug Class(es) Dates Sig (Normalized) Sig (Original) [id number] 200 actuat albuterol 0.09 mg/actuat metered dose [...] Name Value Interpretation Reference Range Facil ity 12 Lead EKGon 02-14-2025 12 Lead EKG [facility] Cardiovascular Services [address] [place] [address] 12 Lead EKG 02/14/25 0715 MR#: [id number] Acct: [id number] Name: BRAYDEN LU Rep #: [id number] : 1970 54 From: Ric Callaway MD Attending Dr: Dr. Kal Thomas MD Status: REG CLI Ordering Dr: Kal Thomas MD Date: 02/14/25 Location: [facility] Sex: F C Admitted: Test Reason : PREOP Blood Pressure : */* mmHG Vent. Rate : 82 BPM Atrial Rate : 82 BPM P-R Int : 146 ms QRS Dur : 90 ms QT Int : 388 ms P-R-T Axes : 53 33 49 degrees QTcB Int : 453 ms Normal sinus rhythm Normal ECG Confirmed by RIC CALLAWAY MD ([id number]), science editor DAHLIA CHAVEZ ([id number]) on 02/15/2025 6:04:31 AM Referred By: Kal Thomas Confirmed By: RIC CALLAWAY MD 02/15/25 0604 Date Ric Callaway MD CC: INTERIOR DECORATORRichard Lee; Dr. Kal Thomas MD Signed Normal [facility] Extremity Lower without Cont raon 02-14-2025 Extremity Lower without Contra [facility] Imaging Services [address] [place] [address] Extremity Lower without Contra MR#: [id number] Acct: [id number] Name: BRAYDEN LU Rep #: [id number] : 1970 F 54 From: Sherwin Key MD PCP: JACKSON Salazar Status: REG CLI Study: Extremity Lower without Contra Date of Exam: 0 02/14/25 Exam# [id number] Ordering Dr: Kal Thomas MD PROCEDURE: EXTREMITY LOWER WITHOUT CONTRA 02/14/2025 REASON FOR EXAM: PAIN IN RT KNEE TECHNIQUE: EXTREMITY LOWER WITHOUT CONTRA Coronal and Sagittal reconstruction series were provided. CONTRAST: None One or more dose reduction techniques were used (e.g., Automated exposure control, adjustment of the mA and/or kV according to patient size, use of iterative reconstruction technique). RADIATION DOSE SUMMARY: DLP: 1179 mGycm COMPARISON: None FINDINGS: There is severe medial joint space narrowing. There is osteophyte formation at all articular surfaces. There is no acute fracture or dislocation. There is a small joint effusion. There is no visible soft tissue mass or cyst. There is no visible atherosclerosis. CT/Extremity Lower without Contra IMPRESSION: There is severe medial joint space narrowing. There is osteophyte formation at all articular surfaces. Reading Location: [facility] CC: JACKSON Lee; Dr. Kal Thomas MD Mine Engineer: Signed Normal [facility] CBC W/Diff, Automatedon 02-2 Absolute Lymph 2.38 X10 3/uL Normal 0.83-4.51 [facility] Comment on above: Performed By: #### L 500.4050, L100.0100 #### [facility] [address] [place], [place], [id number] Absolute Neut 3.9 X10 3/uL Normal 2.0-7.7 [facility] Comment on above: Performed By: #### L 500.4050, L100.0100 #### [facility] [address] [place], [address] Basophils/100 WBC (Bld) 0.4 % Normal 0-1 [facility] Comment on above: Performed By: #### L 500.4050, L100.0100 #### [facility] [address] [place], [address] Eosinophils/100 WBC (Bld) 1.3 % Normal 0-5 [facility] Comment on above: Performed By: #### L 500.4050, L100.0100 #### [facility] [address] [place], [address] Erythrocyte distribution width (RBC) [Ratio] 12.4 % Normal 11.6-14.6 [facility] Comment on above: Performed By: #### L 500.4050, L100.0100 #### [facility] [address] [place], [address] Hematocrit (Bld) [Volume fraction] 42.5 % Normal 37-47 [facility] Comment on above: Performed By: #### L 500.4050, L100.0100 #### [facility] [address] [place], [address] Hemoglobin (Bld) [Mass/Vol] 14.3 g/dL Normal 12.0-15.0 [facility] Comment on above: Performed By: #### L 500.4050, L100.0100 #### [facility] [address] [place], [address] IG% 0.300 Normal 0.0-0.9 [facility] Comment on above: Result Comment: IG% - Immature Granulocytes (promyelocytes, myelocytes and metamyelocytes) > 1% indicates that a LEFT SHIFT is Present. Performed By: #### L 500.4050, L100.0100 #### [facility] [address] [place], [address] Lymphocytes/100 WBC (Bld) 35.1 % Normal 19-41 [facility] Comment on above: Performed By: #### L 500.4050, L100.0100 #### [facility] [address] [place], [address] MCH (RBC) [Entitic mass] 32.1 pg High 27.0-32.0 [facility] Comment on above: Performed By: #### L 500.4050, L100.0100 #### [facility] [address] [place], [address] MCHC (RBC) [Mass/Vol] 33.6 g/dL Normal 32-36 [facility] Comment on above: Performed By: #### L 500.4050, L100.0100 #### [facility] [address] [place], [address] MCV (RBC) [Entitic vol] 95.3 fL Normal 81-99 [facility] Comment on above: Performed By: #### L 500.4050, L100.0100 #### [facility] [address] [place], [address] Monocytes/100 WBC (Bld) 5.0 % Normal 0-10 [facility] Comment on above: Performed By: #### L 500.4050, L100.0100 #### [facility] [address] [place], [address] Neutrophils/100 WBC (Bld) 57.9 % Normal 47-70 [facility] Comment on above: Performed By: #### L 500.4050, L100.0100 #### [facility] [address] [place], [address] Nucleated RBC (Bld) [#/Vol] 0 10*3/uL Normal 0-5 [facility] Comment on above: Performed By: #### L 500.4050, L100.0100 #### [facility] [address] [place], [address] Platelet mean volume (Bld) [Entitic vol] 9.6 fL Normal 6.2-12.0 [facility] Comment on above: Performed By: #### L 500.4050, L100.0100 #### [facility] [address] [place], [address] Platelets (Bld) [#/Vol] 331 10*3/uL Normal 150-450 [facility] Comment on above: Performed By: #### L 500.4050, L100.0100 #### [facility] [address] [place], [address] RBC (Bld) [#/Vol] 4.46 10*6/uL Normal 4.2-5.4 [facility] Comment on above: Performed By: #### L 500.4050, L100.0100 #### [facility] [address] [place], [address] RDW SD 43.6 fl Normal 35.1-43.9 [facility] Comment on above: Performed By: #### L 500.4050, L100.0100 #### [facility] [address] [place], [address] WBC (Bld) [#/Vol] 6.8 10*3/uL Normal 4.4-11.0 [facility] Comment on above: Performed By: #### L 500.4050, L100.0100 #### [facility] [address] [place], [address] Comprehensive Metabolic Prof ilon 08-19-2024 Albumin [Mass/Vol] 3.6 g/dL Normal 3.2-5.0 [facility] Comment on above: Performed By: #### L 500.4050, L100.0100 #### [facility] [address] [place], [address] Albumin/Globulin [Mass ratio] 1.0 {ratio} Normal 0.9-2.4 [facility] Comment on above: Performed By: #### L 500.4050, L100.0100 #### [facility] [address] [place], [address] ALK P 80 U/L Normal 45-117 [facility] Comment on above: Performed By: #### L 500.4050, L100.0100 #### [facility] [address] [place], [address] ALT [Catalytic activity/Vol] 47 U/L Normal 13-56 [facility] Comment on above: Performed By: #### L 500.4050, L100.0100 #### [facility] [address] [place], [address] AST [Catalytic activity/Vol] 19 U/L Normal 15-37 [facility] Comment on above: Performed By: #### L 500.4050, L100.0100 #### [facility] [address] [place], [address] Bilirubin [Mass/Vol] 0.40 mg/dL Normal 0.20-1.00 [facility] Comment on above: Result Comment: For patients on eltrombopag therapy, use of Dimension Drybranch TBIL is not recommended. Performed By: #### L 500.4050, L100.0100 #### [facility] [address] [place], [address] BUN/CRE 16.5 RATIO Normal 10-20 [facility] Comment on above: Performed By: #### L 500.4050, L100.0100 #### [facility] [address] [place], [address] CA,Total 9.3 mg/dL Normal 8.5-10.1 [facility] Comment on above: Performed By: #### L 500.4050, L100.0100 #### [facility] [address] [place], [address] Chloride [Moles/Vol] 105 mmol/L Normal 98-107 [facility] Comment on above: Performed By: #### L 500.4050, L100.0100 #### [facility] [address] [place], [address] CO2 [Moles/Vol] 29.0 mmol/L Normal 21.0-32.0 [facility] Comment on above: Performed By: #### L 500.4050, L100.0100 #### [facility] [address] [place], [address] Creatinine [Mass/Vol] 1.03 mg/dL High 0.55-1.02 [facility] Comment on above: Result Comment: The validity of the calculated GFR GFRAA in patients over 70 years has not been determined. Clinical correlation is essential. Performed By: #### L 500.4050, L100.0100 #### [facility] [address] [place], [address] EST GFR - AA 72 mL/min Normal >60 [facility] Comment on above: Result Comment: Afri can Ivorian GFR Calc Performed By: #### L 500.4050, L100.0100 #### [facility] [address] [place], [address] GAP 4 Low 5-15 [facility] Comment on above: Performed By: #### L 500.4050, L100.0100 #### [facility] [address] [place], [address] GFR/1.73 sq M.predicted among non-blacks MDRD (S/P/Bld) [Vol rate/Area] 59 mL/min/{1.73_m2} Low >60 [facility] Comment on above: Result Comment: Non- GFR Calc Performed By: #### L 500.4050, L100.0100 #### [facility] [address] [place], [address] Globulin (S) [Mass/Vol] 3.7 g/dL Normal 2.2-4.2 [facility] Comment on above: Performed By: #### L 500.4050, L100.0100 #### [facility] [address] [place], [address] Glucose [Mass/Vol] 135 mg/dL High 74-106 [facility] Comment on above: Result Comment: Fast ing Glucose result greater than or equal to 126 mg/dL suggests DIABETES MELLITUS per A.D.A. criteria. Performed By: #### L 500.4050, L100.0100 #### [facility] [address] [place], [address] Potassium [Moles/Vol] 4.0 mmol/L Normal 3.5-5.1 [facility] Comment on above: Performed By: #### L 500.4050, L100.0100 #### [facility] [address] [place], [address] Sodium [Moles/Vol] 138 mmol/L Normal 136-145 [facility] Comment on above: Performed By: #### L 500.4050, L100.0100 #### [facility] [address] [place], [address] T PROT 7.3 g/dL Normal 6.4-8.2 [facility] Comment on above: Performed By: #### L 500.4050, L100.0100 #### [facility] [address] [place], [address] Urea nitrogen [Mass/Vol] 17 mg/dL Normal 7-18 [facility] Comment on above: Performed By: #### L 500.4050, L100.0100 #### [facility] [address] [place], [address] PAP IG w/Reflex HPV GDLNon 0 - ADEQ Comment Normal . [facility] Comment on above: Order Comment: Beckyi men Comment: No. of containers..01 ThinPrep Vial Result Comment: Sati sfactory for evaluation. Endocervical and/or squamous metaplastic cells (endocervical component) are present. Performed By: #### L 7400.0290 #### [facility] [address] [place], [address] Age Gdln ACOG T 30-65 Normal . [facility] Comment on above: Order Comment: Beckyi men Comment: No. of containers..01 ThinPrep Vial Performed By: #### L 7400.0290 #### [facility] [address] [place], [address] COMM . Normal . [facility] Comment on above: Order Comment: Alfonzo men Comment: No. of containers..01 ThinPrep Vial Performed By: #### L 7400.0290 #### [facility] [address] [place], [address] COMMENT Comment Normal . [facility] Comment on above: Order Comment: Beckyi men Comment: No. of containers..01 ThinPrep Vial Result Comment: This liquid based ThinPrep(R) pap test was screened with the use of an image guided system. Performed By: #### L 7400.0290 #### [facility] [address] [place], [address] DIAG Comment Normal . [facility] Comment on above: Order Comment: Speci men Comment: No. of containers..01 ThinPrep Vial Result Comment: NEGA TIVE FOR INTRAEPITHELIAL LESION OR MALIGNANCY. Performed By: #### L 7400.0290 #### [facility] [address] [place], [place], [address] HPV APTIMA, HR Negative Normal Negative [facility] Comment on above: Order Comment: Speci men Comment: No. of containers..01 ThinPrep Vial Result Comment: This nucleic acid amplification test detects fourteen high- risk HPV types (16,18,31,33,35,39,45,51,52,56,58,59,66,68) without differentiation. Performed By: #### L 7400.0290 #### [facility] [address] [place], [address] HPV Lucie Rfx Comment Normal . [facility] Comment on above: Order Comment: Speci men Comment: No. of containers..01 ThinPrep Vial Result Comment: Crit eria not met, HPV Genotype not performed. Performed at: = - [address] [id number] Separating Machine Operator: Marlyn Mari MD, Phone: [phone] Performed at: - [address] [id number] Separating Machine Operator: Marlyn Mari MD, Phone: [phone] Performed By: #### L 7400.0290 #### [facility] [address] [place], [place], [id number] PAPSMR Comment Normal . [facility] Comment on above: Order Comment: Speci men [...] Performed By: #### L 7400.0290 #### [facility] [address] [place], [place], [address] PERFORM Comment Normal . [facility] Comment on above: Order Comment: Speci men Comment: No. of containers..01 ThinPrep Vial Result Comment: Hector Tim, Redeye Gunner (ASCP) Performed By: #### L 7400.0290 #### [facility] [address] [place], [place], [address] Knee 4 or More Viewson 06-25 Knee 4 or More Views [facility] Imaging Services [address] [place], [place] [address] Knee 4 or More Views MR#: [id number] Acct: [id number] Name: BRAYDEN LU Rep #: [id number] : 1970 F 54 From: Keyonna Buck PCP: JACKSON Salazar Status: REG CLI Study: Knee 4 or More Views Date of Exam: 06/25/24 Exam# [id number] Ordering Dr: Radha Lee [id number] INDICATION: ARTHRITIS EXAMINATION/TECHNIQUE: X-RAY - RIGHT XR [...] at 8:07 EST , CC: JACKSON Lee Mine Engineer: Signed Normal [facility] Knee 4 or More Views [facility] Imaging Services [place], [place] [address] Knee 4 or More Views MR#: [id number] Acct: [id number] Name: BRAYDEN LU Rep #: [id number] : 1970 F 54 From: Keyonna Buck PCP: JACKSON Salazar Status: REG CLI Study: Knee 4 or More Views Date of Exam: 06/25/24 Exam# [id number] Ordering Dr: Radha Lee [id number] INDICATION: ARTHRITIS EXAMINATION/TECHNIQUE: X-RAY - LEFT XR [...] Signed: Keyonna Pelletier MD at 8:08 EST , CC: JACKSON Lee Mine Engineer: Signed Normal [facility] CNOVon 12-17-2023 CNOV Office Visit (UCWSTR ) BRAYDEN LU ([id number]) 1970 F Date Time Provider Department 12/17/23 11:45 AM CRESENCIO SERNA [facility] During your visit today, we recorded [...] Status:Closed by CRESENCIO SERNA on 12/17/23 Normal [facility] Vital Signs Date Time Vital Sign Value Performing Clinician Faci lity 12-17-2023 11:59-0400 Body temperature 97.5 [degF] Cresencio Serna MD Work Phone: [facility] 12-17-2023 11:59-0400 Body weight 82.6 kg Cresencio Serna MD Work Phone: [facility] 12-17-2023 11:59-0400 Diastolic blood pressure 80 mm[Hg] Cresencio Serna MD Work Phone: [facility] 12-17-2023 11:59-0400 Heart rate 75 /min Cresencio Serna MD Work Phone: [facility] 12-17-2023 11:59-0400 Respiratory rate 21 /min Cresencio Serna MD Work Phone: [facility] 12-17-2023 11:59-0400 SaO2% (BldA) [Mass fraction] 97 % Cresencio Serna MD Work Phone: [facility] 12-17-2023 11:59-0400 Systolic blood pressure 124 mm[Hg] Cresencio Serna MD Work Phone: [facility] Encounters Encounter Date Encounter Type Care Provider Facility Start: 02-14-2025 Encounter for other preprocedural examination Kal Thomas [facility] Start: 02-14-2025 [facility] Facility[facility] Start: 09-02-2024 Encounter for genera l adult medical examination with abnormal findings Radha Lee [facility] Start: 08-19-2024 End: 08-19-2024 ambulatory [facility] Facility:[facility] Start: 07-13-2024 End: 07-13-2024 ambulatory [facility] Facility:[facility] Start: 06-25-2024 End: 06-25-2024 ambulatory [facility] Facility:[facility] Start: 12-17-2023 End: 12-17-2023 ambulatory Facility:[facility] Start: 12-17-2023 End: 12-17-2023 Patient encounter procedure Cresencio Serna MD Work Phone: [facility] Comment on above: Vertigo (Primary Dx) ; Tinnitus aurium, bilateral Procedures Date Procedure Procedure Detail Performing Clinician Start: 09-26-2023 Lipid 1996 panel - S sam or Plasma Cresencio Serna MD Work Phone: Plan of Treatment Date Care Activity Detail Author Start: 09-25-2033 Urine microalbumin profile DTa P,Tdap,Td Vaccine (2 - Td or Tdap) [facility] Start: 09-25-2028 Lipid panel Lipid Screening [facility] Start: 02-29-2024 Influenza vaccination Influenz a Vaccine (Season Ended) [facility] Start: 06-30-2023 Behavioral Health Screening Behavioral Health Screening [facility] Start: 02-28-2023 Covid-19 Vaccine ( season) Covid-19 Vaccine ( season) [facility] Start: 02-21-2020 Shingrix Vaccine (1 of 2) Scott grix Vaccine (1 of 2) [facility] Start: 2015 Diabetes Screening Diabetes Screenin g [facility] Start: 2015 Screening for malign ant neoplasm of colon [facility] Start: 2010 Screening for malign ant neoplasm of breast Mammogram Screening [facility] Start: 1991 Screening for malign ant neoplasm of cervix Cervical Cancer Screening [facility] Start: 1989 Hepatitis B Vaccine (1 of 3 - 19+ 3-dose series) Hepatitis B Vaccine (1 of 3 - 19+ 3-dose series) [facility] Start: 02-21-1988 Hepatitis C screening Hepatitis C Sc andrew [facility] Start: 02-21-1988 HIV screening [facility] Screening [facility] Payers Date Payer Category Payer Self-pay 2024 Unknown [id number] 2022 Private Health Insurance ARTI BUNDY POS [id number] 2022-Present [phone] [address] [place] [address] POS [id number] 2022 Private Health Insurance [id number] Unknown [id number] Unknown [id number] Unknown [id number] Unknown [id number] Social History Date Type Detail Facility Start: 12-17-2023 Tobacco smoking status NHIS Never smoked tobacco [facility] Start: 12-17-2023 Tobacco use and exposure Smokeless tobacco non-user [facility] Start: 12-17-2023 History of Social function [facility] Start: 12-17-2023 Tobacco use panel [facility] Start: 1970 Sex Assigned At Not on file [facility] NEGATED: Highlighted rowStart: NINF History of tobacco use Passive smoker [facility] Progress note 12-17-2023 Note Date & Type Note Facility 12-17-2023 Note HNO ID: [id number] Author: CRESENCIO SERNA MD Service: ? Author [...] Seek re-evaluation this week. Cresencio Serna MD [facility] History of Present illness Narrative 12-17-2023 Cresencio [...] Cresencio Serna MD documented in this encounter [facility] Evaluation note Note Date & Type Note Facility Evaluation note Diagnosis Vertigo- Primary Dizziness and giddiness Tinnitus aurium, bilateral documented in this encounter [facility] Summary Purpose Family History No Family [...] or prosecute any alcohol or drug abuse patient.[facility] Reason for Visit (unrecogniz ed section and content) Reason Comments Ear Problem Bilateral ear issues , dizziness, nausea x 1 day INFORMATION SOURCE (unrecogn ized section and content) DATE CREATED AUTHOR 12/19/2023 [facility] DATE CREATED AUTHOR AUTHOR'S PHOEBE WU 02/16/2025 [facility] FOR RECORDS PERTAINING TO PATIENTS WHO ARE [...] BE BASED ON THE PRIMARY CLINICAL RECORDS. [facility] [employer] provides no warranty or guarantee of the accuracy or completeness of information in this document.
[2025-02-17 10:05] LABS: Hematocrit 40.1 % (37-47); Hemoglobin 13.6 g/dL (12.0-15.0); Immature Granulocytes Count 0.010 X10^3/uL (0.0-0.0); Mean Corp Hgb Conc 33.9 g/dL (32-36); Mean Corpuscular Volume 92.4 fL (81-99); Mean Platelet Vol. 9.7 fl (6.2-12.0); NRBC Flagged by Analyzer 0 % (0-5); Platelet Count 290 K/mm3 (150-450); RBC Distribution Width CV 12.1 % (11.6-14.6); RBC Distribution Width SD 41.4 fl (35.1-43.9); Red Blood Count 4.34 M/mm3 (4.2-5.4); White Blood Count 5.3 K/mm3 (4.4-11.0)
[2025-02-17 10:44] LABS: Albumin, Serum 4.2 g/dL (3.5-5.0); Anion Gap 12 (5-15); BUN 14 mg/dL (4-19); BUN/Creat Ratio 18.4 RATIO (10-20); Calcium,Total 9.2 mg/dL (7.6-11.0); Carbon Dioxide 23.7 mmol/L (21.0-32.0); Chloride 104 mmol/L (98-108); Glucose 106 mg/dL (70-99); Potassium 4.0 mmol/L (3.3-5.1)
== END | disposition home or self-care (01) ==
PROVIDERS: PCP Nurse Practitioner Family; Referring Provider Specialist; Visit Provider Specialist
DX: Z01.818 Encounter for other preprocedural examination (principal); M17.11 Unilateral primary osteoarthritis, right knee; M21.161 Varus deformity, not elsewhere classified, right knee
CPT/HCPCS: 36415; 80048; 82040; 85025

== ENCOUNTER → 2025-03-28 | Outpatient (CLI) | payer BC, SELFPAY ==
[2025-03-28 17:53] LABS: Hematocrit 37.4 % (37-47); Hemoglobin 12.4 g/dL (12.0-15.0); Immature Granulocytes Count 0.010 X10^3/uL (0.0-0.0); Mean Corp Hgb Conc 33.2 g/dL (32-36); Mean Corpuscular Volume 94.7 fL (81-99); Mean Platelet Vol. 10.2 fl (6.2-12.0); NRBC Flagged by Analyzer 0 % (0-5); Platelet Count 391 K/mm3 (150-450); RBC Distribution Width CV 12.5 % (11.6-14.6); RBC Distribution Width SD 43.5 fl (35.1-43.9); Red Blood Count 3.95 M/mm3 (4.2-5.4); White Blood Count 6.3 K/mm3 (4.4-11.0)
[2025-03-28 18:33] LABS: Anion Gap 12 (5-15); BUN 27 mg/dL (4-19); BUN/Creat Ratio 29.9 RATIO (10-20); Calcium,Total 9.5 mg/dL (7.6-11.0); Carbon Dioxide 24.0 mmol/L (21.0-32.0); Chloride 104 mmol/L (98-108); Glucose 102 mg/dL (70-99); Potassium 4.7 mmol/L (3.3-5.1)
== END | disposition home or self-care (01) ==
LOC: MTLAB 16:25
PROVIDERS: PCP Nurse Practitioner Family; Referring Provider Nurse Practitioner Family; Visit Provider Nurse Practitioner Family
DX: R42 Dizziness and giddiness (principal)
CPT/HCPCS: 36415; 80048; 83036; 84439; 84443; 85025